=== PATIENT | female | born 1940 | race Caucasian/White ===

== ENCOUNTER 2018-03-31 11:39 | Emergency (ER) | payer MEDICARE ==
--- NOTE | 2018-03-31 13:26 | UC ---
Lower Extremity/Ankle HPI - HPI Summary HPI Summary: About 4 weeks of intermittent right posterior leg pain/tenderness extending from her posterior thigh to mid calf. Episodes occur multiple times throughout the day. Denies shortness of breath, chest pain, palpitations, fever. Spent the last 2 weeks in the [place] and did drive both barium back but symptoms began several weeks prior to this. No travel at that time. No trauma or injury. No personal or family history of blood clots or bleeding disorders. - History of Current Complaint Chief Complaint: UCLowerExtremity Stated Complaint: LOWER LEG PAIN Time Seen by Provider: 03/31/18 13:11 Hx Obtained From: Patient Onset/Duration: Gradual Onset, Lasting Weeks, Still Present Severity Initially: Moderate Severity Currently: Moderate Pain Intensity: 7 Pain Scale Used: 0-10 Numeric Aggravating Factor(s): Standing, Ambulation Alleviating Factor(s): Rest Able to Bear Weight: Yes - Allergies/Home Medications Allergies/Adverse Reactions: Allergies Allergy/AdvReac Type Severity Reaction Status Date / Time alendronate sodium Allergy Unknown Verified 03/31/18 12:11 [From Fosamax] Reaction Details cerivastatin [From Baycol] Allergy Leg Cramps Verified 03/31/18 12:11 citalopram [From Celexa] Allergy Unknown Verified 03/31/18 12:11 Reaction Details ezetimibe [From Zetia] Allergy Unknown Verified 03/31/18 12:11 Reaction Details metoprolol [From Toprol XL] Allergy Unknown Verified 03/31/18 12:11 Reaction Details sertraline [From Zoloft] Allergy Unknown Verified 03/31/18 12:11 Reaction Details simvastatin [From Zocor] Allergy Leg Cramps Verified 03/31/18 12:11 Ymlfugc-Rut-Mkb Reductase Allergy See Comment Verified 03/31/18 12:11 Inhibitor Home Medications: Home Medications Ezetimibe [Zetia] 10 mg PO 03/31/18 [History] PMH/Surg Hx/FS Hx/Imm Hx Cardiovascular History: Hypertension Other Cancer History: BCC Other History Of: Negative For: Anticoagulant Therapy - Surgical History Surgical History: Yes Surgery Procedure, Year, and Place: TONSILECTOMY, D&C - Family History Known Family History: Negative: Blood Disorder - Social History Alcohol Use: Daily Substance Use Type: None Smoking Status (MU): Never Smoked Tobacco - Immunization History Most Recent Influenza Vaccination: 04/2014 Most Recent Tetanus Shot: unknown Most Recent Pneumonia Vaccination: 2013 Review of Systems Constitutional: Negative Skin: Negative Respiratory: Negative Cardiovascular: Negative Gastrointestinal: Negative Musculoskeletal: Calf Tenderness All Other Systems Reviewed And Are Negative: Yes Physical Exam Triage Information Reviewed: Yes Appearance: Well-Appearing, No Pain Distress, Well-Nourished Vital Signs: Initial Vital Signs Temp 98.3 F 03/31/18 12:01 Pulse 65 03/31/18 12:01 Resp 18 03/31/18 12:01 BP 134/71 03/31/18 12:01 Pulse Ox 95 03/31/18 12:01 Vital Signs Reviewed: Yes Eyes: Positive: Conjunctiva Clear ENT: Positive: Hearing grossly normal Neck: Positive: Supple Respiratory: Positive: No respiratory distress, No accessory muscle use Cardiovascular: Positive: Pulses Normal Abdomen Description: Positive: Soft Musculoskeletal: Positive: ROM Intact, No Edema, Other: - CALF CIRCUMFERENCE 42CM BILATERALLY. MILD RIGHT CALF TENDERNESS. EQUIVOCAL HOMANS Neurological: Positive: Alert Psychological: Positive: Age Appropriate Behavior Skin: Negative: rashes Diagnostics - Radiology RLE US Xray Interpretation: No Acute Changes Radiology Interpretation Completed By: Radiologist Lower Extremity Course/Dx - Differential Dx/Diagnosis Provider Diagnoses: RIGHT LEG PAIN Discharge - Sign-Out/Discharge Documenting (check all that apply): Patient Departure All imaging exams completed and their final reports reviewed: Yes - Discharge Plan Condition: Stable Disposition: HOME Patient Education Materials: Leg Pain (ED) Referrals: Dung Garcia MD [Medical Doctor] - 1 Week Kip Baez MD [Primary Care Provider] - If Needed Additional Instructions: ULTRASOUND NEGATIVE FOR DVT. FOLLOW-UP WITH ORTHO FOR FURTHER EVALUATION IF YOUR SYMPTOMS DO NOT IMPROVE. Leg pain, non-specific: We did not find a specific cause for your leg pain. But there's no sign of a serious problem at this time. Often the cause of the pain becomes obvious with time, or the pain simply goes away. The most common causes of unexplained leg pain are: Muscle irritation. Muscle fatigue, overuse, pressure on the muscle from sitting or lying in one position, or immune reaction to muscle tissue can cause pain. Cholesterol-lowering drugs (statins) can inflame muscles. Dehydration or mineral deficits: Low levels of potassium, salt, calcium, or magnesium can cause cramps or leg muscle pain. Diuretics (water pills) can cause this. Subtle injury. Strains or bruises that were so minor they weren't noticed can cause pain a day or two later. A "stress fracture" of a leg bone can be caused by overuse. "Resendez splints" is pain in the front of the lower leg caused by overuse or hard running. Nerve pain. Leg pain can be caused by disc disease in the back (sciatica or "pinched nerve") or by damage to nerves by diabetes, alcohol abuse, smoking, or vitamin deficiency. A bruise or pressure on a nerve can cause pain. Tendonitis. Inflammation of a tendon can cause leg pain. Sometimes it's not obvious which tendon is responsible. Varicose veins and post-phlebitic syndrome. Abnormal veins sometimes cause widespread leg aching, particularly after being up on your feet all day. Arthritis. Sometimes the pain of an inflamed joint is felt through a wide area. Restless legs. This is an uncomfortable tightness that builds in the legs, making you want to move them. Sometimes it's caused by medication. Blood clots. We found no sign of blood clots during your evaluation today. Clots in tiny veins may cause pain but be non-detectable. Vascular disease. Narrowed arteries can make your muscles run short of oxygen, causing pain with walking. Other serious causes but more rare causes of leg pain include infection, tumors, and bone degeneration. Rest as much as possible. Elevate your leg while resting. Gently stretch your leg muscles four times a day. Use kckc-syo-nckoiee pain medicine like acetaminophen or ibuprofen. Gentle compression like support hose or elastic bandages might help. Warm up your leg muscles before physical activity. Carefully control any underlying health problems such as diabetes, high blood pressure, heart failure, gout, or arthritis. Eliminate alcohol and tobacco. See the doctor if you have significant changes, such as swelling, redness, fever, increasing pain, numbness, or discoloration. - Billing Disposition and Condition Condition: STABLE Disposition: Home
[2018-03-31 14:21] VITALS: BP 159/81
--- NOTE | 2018-03-31 14:23 | RAD ---
Indication: Right thigh pain.. Duplex Doppler sonography of the deep venous system of the right lower extremity deep venous system was performed. Bilaterally the common femoral veins appear patent and compressible. Right proximal greater saphenous vein, proximal deep femoral vein, femoral vein, popliteal vein, posterior tibial veins and peroneal veins appear patent and compressible. IMPRESSION: NO EVIDENCE OF DEEP VENOUS THROMBOSIS IS IDENTIFIED.
== END 2018-03-31 14:49 | disposition home or self-care (01) ==
LOC: UCEAST 11:39
DX: M79.661 Pain in right lower leg (principal); M79.651 Pain in right thigh; Z88.8 Allergy status to other drugs, medicaments and biological substances
CPT/HCPCS: 99202; G0463

== ENCOUNTER 2018-12-23 16:57 | Emergency (ER) | payer MEDICARE ==
[2018-12-23 17:11] VITALS: BP 135/76
--- NOTE | 2018-12-23 17:24 | UC ---
Complaint Female HPI - HPI Summary HPI Summary: 78-year-old female presents with one-week history of intermittent suprapubic discomfort and burning with urination. Patient reports that she has a prolapsed uterus which she has not had evaluated. Denies fever, chills, back or flank pain, nausea, vomiting, hematuria, vaginal discharge, or abnormal bleeding. - History Of Current Complaint Chief Complaint: UCGU Stated Complaint: UTI Time Seen by Provider: 12/23/18 17:06 Hx Obtained From: Patient Pain Intensity: 3 - Allergies/Home Medications Allergies/Adverse Reactions: Allergies Allergy/AdvReac Type Severity Reaction Status Date / Time alendronate sodium Allergy Unknown Verified 12/23/18 17:12 [From Fosamax] Reaction Details cerivastatin [From Baycol] Allergy Leg Cramps Verified 12/23/18 17:12 citalopram [From Celexa] Allergy Unknown Verified 12/23/18 17:12 Reaction Details ezetimibe [From Zetia] Allergy Unknown Verified 12/23/18 17:12 Reaction Details metoprolol [From Toprol XL] Allergy Unknown Verified 12/23/18 17:12 Reaction Details sertraline [From Zoloft] Allergy Unknown Verified 12/23/18 17:12 Reaction Details simvastatin [From Zocor] Allergy Leg Cramps Verified 12/23/18 17:12 Omlancq-Mev-Cof Reductase Allergy See Comment Verified 12/23/18 17:12 Inhibitor PMH/Surg Hx/FS Hx/Imm Hx Endocrine History: Dyslipidemia Cardiovascular History: Hypertension Other History Of: Negative For: Anticoagulant Therapy - Surgical History Surgical History: Yes Surgery Procedure, Year, and Place: TONSILECTOMY, D&C - Family History Known Family History: Positive: Non-Contributory - Social History Occupation: Retired Lives: With Family Alcohol Use: Daily Alcohol Amount: one beer Substance Use Type: None Smoking Status (MU): Never Smoked Tobacco - Immunization History Most Recent Influenza Vaccination: 04/2014 Most Recent Tetanus Shot: unknown Most Recent Pneumonia Vaccination: 2013 Review of Systems All Other Systems Reviewed And Are Negative: Yes Constitutional: Negative: Fever, Chills Respiratory: Positive: Negative Cardiovascular: Positive: Negative Gastrointestinal: Positive: Negative Genitourinary: Positive: Dysuria, Frequency, Other - Uterine prolapse. Negative : Hematuria, Urgency, Vaginal/Penile Discharge, Abnormal Bleeding Musculoskeletal: Positive: Negative Neurological: Positive: Negative Is Patient Immunocompromised?: No Physical Exam - Summary Physical Exam Summary: GENERAL APPEARANCE: Well developed, well nourished, alert and cooperative, and appears to be in no acute distress. CARDIAC: Normal S1 and S2. No S3, S4 or murmurs. Rhythm is regular. There is no peripheral edema, cyanosis or pallor. Extremities are warm and well perfused. Capillary refill is less than 2 seconds. Peripheral pulses intact. LUNGS: Clear to auscultation without rales, rhonchi, wheezing or diminished breath sounds. ABDOMEN: Positive bowel sounds. Soft, nondistended, nontender. No guarding or rebound. No masses or hepatosplenomegally. No CVA tenderness. MUSKULOSKELETAL: ROM intact to all extremities. No joint erythema or tenderness. Normal muscular development. Normal gait. SKIN: Skin normal color, texture and turgor with no lesions or eruptions. Triage Information Reviewed: Yes Vital Signs: Initial Vital Signs Temp 98.5 F 12/23/18 16:59 Pulse 74 12/23/18 16:59 Resp 12 12/23/18 16:59 BP 135/76 12/23/18 16:59 Vital Signs Reviewed: Yes Complaint Female Dx - Course Course Of Treatment: 78-year-old female presents with one-week history of intermittent suprapubic discomfort and burning with urination. Patient reports that she has a prolapsed uterus which she has not had evaluated. Denies fever, chills, back or flank pain, nausea, vomiting, hematuria, vaginal discharge, or abnormal bleeding. Afebrile. Vital signs stable. Her exam was overall unremarkable. Fhjog-di-kbvk urinalysis showed 1+ leukocyte esterase and trace blood. Urine culture is pending. We'll treat her empirically for a UTI with Macrobid 1 tablet twice a day 5 days. I did discuss with the patient that the presence of a prolapsed uterus and also sometimes present as urinary tract infection symptoms and have recommended that she follow up with gynecology. She is to follow-up with her primary care provider in 3-5 days if her symptoms are not improving. Anticipatory guidance and warning symptoms are reviewed with the patient. Verbalizes understanding and agrees with plan of care. - Differential Dx/Diagnosis Differential Diagnosis/HQI/PQRI: Renal Colic, Ureteral Stone, Urinary Tract Infection Provider Diagnosis: UTI (urinary tract infection) Discharge - Sign-Out/Discharge Documenting (check all that apply): Patient Departure All imaging exams completed and their final reports reviewed: No Studies - Discharge Plan Condition: Stable Disposition: HOME Prescriptions: Nitrofurantoin Monohyd/M-Cryst [Macrobid 100 mg Capsule] 100 mg PO BID #10 cap Patient Education Materials: Urinary Tract Infection in Women (ED) Referrals: Kip Baez MD [Primary Care Provider] - Additional Instructions: Your urine test in the clinic today is suggestive of a urinary tract infection. We will start you on an antibiotic to treat for the infection. We will also send a urine culture today to see what bacteria grow out and make sure the antibiotic you were prescribed is appropriate to treat the infection. It will take 48-72 hours to get these results. We will contact you if there is any change in your treatment plan. Start nitrofurantoin (Macrobid) 100 mg twice a day for 5 days. Drink plenty of fluids. To help prevent urinary tract infections: 1) Be sure to wipe from front to back. 2) Avoid taking bubble baths. I would recommend that you follow up with a director learning regarding the uterine prolapse as this condition can cause urinary tract symptoms as well as make you more prone to infections. Follow up with your primary care provider in 5-7 days if symptoms persist. Seek immediate medical attention in the emergency room if you develop fever greater than 100.5 F, have severe abdominal pain, persistent vomiting, or any worsening of symptoms. - Billing Disposition and Condition Condition: STABLE Disposition: Home
== END 2018-12-23 17:50 | disposition home or self-care (01) ==
LOC: UCEAST 16:57
DX: N39.0 Urinary tract infection, site not specified (principal); I10 Essential (primary) hypertension
CPT/HCPCS: 81003; 87086; 99212; G0463